=== PATIENT | male | born 1995 | race Two or more races ===

== ENCOUNTER 2023-09-23 10:07 | Outpatient (REF) | payer OTHER, SELFPAY ==
--- NOTE | 2023-09-23 10:13 | EMG_ITS ---
Bilateral median and ulnar motor and sensory studies were performed. Bilateral radial and median and lateral antecubital brachial sensory studies were performed and paraspinal muscles were tested with a needle. IMPRESSION: This is an unremarkable study with no evidence of median or ulnar neuropathy. MD NICOLÁS Huerta/MAIDA / [id number]
== END 2023-09-23 10:08 | disposition home or self-care (01) ==
LOC: HO.NEURO 10:07
PROVIDERS: PCP Internal Medicine; Visit Provider Internal Medicine
DX: M79.641 Pain in right hand (principal); M79.642 Pain in left hand
CPT/HCPCS: 95886; 95911